=== PATIENT | male | born 1970 | race African-American/Black ===

== ENCOUNTER 2022-08-18 08:16 | Inpatient (IN) | payer MEDICARE, OTHER ==
[2022-08-18 08:38] VITALS: BP 157/97; PULSE 90; RESP 21; TEMP 98.7; BMI 33.4
[2022-08-18] MEDS ORDERED: DEXAMETHASONE SOD PHOSPHATE 10 MG/1 ML VIAL IVPUSH ONE (08:58)
[2022-08-18] MEDS ORDERED: MAGNESIUM SULF 50% (8.12 MEQ/2 ML-1 GM VIAL) IVPB ONE (09:12)
[2022-08-18] MEDS ORDERED: MAGNESIUM SULFATE IN WATER 2 GM/50 ML IVPB IVPB ONE (09:21)
[2022-08-18] MEDS ORDERED: DEXAMETHASONE SOD PHOSPHATE 10 MG/1 ML VIAL ONE (09:21)
[2022-08-18] MEDS: ALBUTEROL SO4 2.5/IPRATROPIUM 0.5 INH SOL 3 ML VIAL.NEB. NEB SCH ×2 (09:49→10:37)
[2022-08-18 10:17] LABS: VENOUS BASE EXCESS 0.1 mmol/L (-2-2); VENOUS O2 SATURATION 97.2 % (70-80); VENOUS PCO2 39.8 mmHg (38-52); VENOUS PH 7.41 (7.310-7.410)
[2022-08-18 10:33] LABS: BASO % 0.5 % (0-2.0); EOS % 2.4 % (0-4.5); HEMATOCRIT 38.9 % (35.4-49); HEMOGLOBIN 12.9 GM/dL (11.7-16.9); LYMPH % 8.4 % (8-40); MCH 27.3 pg (25.7-33.7); MCHC 33.2 g/dl (32.0-35.9); MEAN CELL VOLUME 82.3 fl (80-96); MEAN PLT VOLUME 7.5 fl (7.5-11.1); MONO % 2.6 % (3.8-10.2); NEUT % 86.1 % (42.8-82.8); PLATELET COUNT 445 10^3/uL (134-434); RBC 4.73 M/mm3 (4.00-5.60); RDW 15.9 % (11.9-15.9); WHITE BLOOD COUNT 9.1 K/mm3 (4.0-10.0)
[2022-08-18 10:41] LABS: INR 1.14 (0.83-1.09); PROTHROMBIN TIME (PATIENT) 13.2 SEC (9.7-13.0)
[2022-08-18 10:43] LABS: POTASSIUM 4.1 mmol/L (3.5-5.1)
[2022-08-18 10:44] LABS: ACTIVATED PTT 33.7 SECONDS (25.2-36.5); BLOOD UREA NITROGEN 19.2 mg/dL (7-18); CALCIUM 9.5 mg/dL (8.5-10.1)
[2022-08-18 10:45] LABS: ALBUMIN 3.8 g/dl (3.4-5.0)
[2022-08-18 10:47] LABS: CREATININE 0.8 mg/dL (0.55-1.3)
[2022-08-18 10:49] LABS: BILIRUBIN,TOTAL 0.4 mg/dL (0.2-1)
[2022-08-18 10:50] LABS: TOT PROT 7.2 g/dl (6.4-8.2)
[2022-08-18] MEDS ORDERED: ACETAMINOPHEN 325 MG TABLET (FP) PO PRN (13:43)
[2022-08-18] MEDS ORDERED: ALBUTEROL SO4 2.5/IPRATROPIUM 0.5 INH SOL 3 ML VIAL.NEB. NEB PRN (13:43)
[2022-08-18] MEDS ORDERED: LORazepam 2 MG/ML SDV VIAL IVPUSH PRN (14:57)
[2022-08-18] MEDS ORDERED: HALOPERIDOL LACTATE 5 MG/ML IM ONE (16:30)
[2022-08-18] MEDS ORDERED: methylPREDNISolone NA SUCC 40 MG/1 ML VIAL IVPB SCH (18:00)
[2022-08-18] MEDS ORDERED: HEPARIN NA (PORCINE) 5,000 UNITS/ML 1ML VIAL SQ SCH (22:00)
[2022-08-19] MEDS ORDERED: PANTOPRAZOLE 40 MG TABLET PO SCH (10:00)
[2022-08-19] MEDS ORDERED: NICOTINE 14 MG/24 HOURS TOPICAL PATCH TD SCH (10:00)
== END 2022-08-18 17:57 | DRG 202 ==
LOC: JER 08:16 → JERBED 12:59 → J6S 14:42
PROVIDERS: ADMIT Internal Medicine; ATTEND Internal Medicine
DX: J45.901 Unspecified asthma with (acute) exacerbation (principal); F23 Brief psychotic disorder; J43.8 Other emphysema; I10 Essential (primary) hypertension; E78.5 Hyperlipidemia, unspecified; Z59.00 Homelessness unspecified; R42 Dizziness and giddiness; R09.02 Hypoxemia; F17.210 Nicotine dependence, cigarettes, uncomplicated
CPT/HCPCS: 0241U-QW; 36415; 71045-TC-FY; 71275-TC; 80053; 82803; 84484; 85025; 85610; 85730; 86850; 86900; 86901; 87040; 93005; 93010; 99285-25; J1100; Q9967